=== PATIENT | male | born 1985 | race Asian ===

== ENCOUNTER 2021-06-10 01:42 | Emergency (ER) | payer OTHER ==
[~2021-06-10] VITALS: Ht 182.9 cm; Wt 98.7 kg
--- NOTE | 2021-06-10 02:06 | PHYS DOC ---
Past History Past Surgical History: No Surgical History General Adult EDM: Chief Complaint: SHORTNESS OF BREATH HPI: HPI: 35-year-old male presents with dizziness and shortness of breath. The patient woke up from sleep about an hour ago to go to the restroom and he felt dizzy as soon as he woke up. He describes it as a lightheaded feeling. There is no room spinning. He feels more nauseous if he opens his eyes. He has never had this before. He denies any change in his hearing. Denies any falls or trauma. No fever or chills. Review of Systems: Review of Systems: Constitutional: Denies fever or chills Eyes: Denies change in visual acuity HENT: Denies nasal congestion or sore throat Respiratory: Denies cough or shortness of breath Cardiovascular: Denies chest pain or edema GI: Nausea. Denies abdominal pain, vomiting, bloody stools or diarrhea : Denies dysuria Musculoskeletal: Denies back pain or joint pain Integument: Denies rash Neurologic: Dizziness. Denies headache, focal weakness or sensory changes Endocrine: Denies polyuria or polydipsia Lymphatic: Denies swollen glands Psychiatric: Denies depression or anxiety Current Medications: Current Meds: Current Medications Medications (Trade) Dose Ordered Sig/Vonnie Start Time Stop Time Status Last Admin Dose Admin Sodium Chloride 1,000 ml @ 1,000 mls/hr 1X ONCE 06/10/21 02:30 06/10/21 03:29 Allergies: Allergies: Allergies Coded Allergies Type Severity Reaction Last Updated Verified No Known Drug Allergies 06/10/21 No Physical Exam: PE: Constitutional: Well developed, well nourished, no acute distress, non-toxic appearance. [] HENT: Normocephalic, atraumatic, bilateral external ears normal, oropharynx moist, no oral exudates, nose normal. [] Eyes: PERRLA, EOMI, conjunctiva normal, no discharge. No nystagmus. [] Neck: Normal range of motion, no tenderness, supple, no stridor. [] Cardiovascular: Heart rate regular rhythm, no murmur [] Lungs & Thorax: Bilateral breath sounds clear to auscultation [] Abdomen: Bowel sounds normal, soft, no tenderness, no masses, no pulsatile masses. [] Skin: Warm, dry, no erythema, no rash. [] Back: No tenderness, no CVA tenderness. [] Extremities: No tenderness, no cyanosis, no clubbing, ROM intact, no edema. [] Neurologic: Alert and oriented X 3, normal motor function, normal sensory function, no focal deficits noted. [] Psychologic: Affect normal, judgement normal, mood anxious. [] Current Patient Data: Vital Signs: Vital Signs Date Time Temp Pulse Resp B/P (MAP) Pulse Ox O2 Delivery O2 Flow Rate FiO2 06/10/21 01:43 98.0 76 14 137/86 (103) 98 Room Air EKG: EKG: [] Radiology/Procedures: Radiology/Procedures: [] Impressions: XR CHEST 1V 06/10/2021 1:53 AM INDICATION: Dizziness COMPARISON: None available TECHNIQUE: Portable frontal view of the chest is provided. FINDINGS: The cardiomediastinal silhouette is within normal limits. Lungs are clear. 10 mm nodular opacity identified projecting over the left first rib. There are no significant pleural effusions. There is no pulmonary vascular congestion. No pneumothorax. No suspicious osseous abnormality. IMPRESSION: There is no acute cardiopulmonary process. 10 mm nodular opacity projects over the left first rib. This could be secondary to rib degenerative changes. However, further evaluation with nonemergent CT chest could be of benefit. Electronically signed by: Kathie Eisenberg MD (06/10/2021 2:19 AM) [facility] DICTATED AND SIGNED BY: KATHIE EISENBERG MD DATE: 06/10/21 0215 CC: REYNA BEDOLLA DO; PCP,NO ~MTH0 0 Heart Score: C/O Chest Pain: N/A Risk Factors: Risk Factors: DM, Current or recent (<one month) smoker, HTN, HLP, family history of CAD, obesity. Risk Scores: Score 0 - 3: 2.5% MACE over next 6 weeks - Discharge Home Score 4 - 6: 20.3% MACE over next 6 weeks - Admit for Clinical Observation Score 7 - 10: 72.7% MACE over next 6 weeks - Early Invasive Strategies Course & Med Decision Making: Course & Med Decision Making Pertinent Labs and Imaging studies reviewed. (See chart for details) The patient's labs are unremarkable. His chest x-ray is negative for acute findings. Incidental finding. See official read for more details his EKG is unremarkable. I gave the patient 1 L of normal saline, 4 mg of Zofran, and 25 mg of meclizine. He is feeling better. He is stable for discharge at this time. [] Dragon Disclaimer: Dragon Disclaimer: This electronic medical record was generated, in whole or in part, using a voice recognition dictation system. Departure Departure: Impression: Primary Impression: Dizziness Additional Impression: Shortness of breath Disposition: 01 HOME / SELF CARE / HOMELESS Condition: STABLE Referrals: PCP,NO (PCP) Patient Instructions: Dizziness, [id number], Shortness of Breath, [id number] REYNA BEDOLLA DO Jun 10, 2021 02:06
--- NOTE | 2021-06-10 02:21 | EKG ---
[address] [address] Test Date: 2021-06-10 Test Time: 02:07:40 Pat Name: RONALD MAY Department: Room: Gender: M Information Assistant: HAYLEY : 1985 Requested By: REYNA BEDOLLA Order Number: [id number] Reading MD: Magdaleno Haas Measurements Intervals [place] Rate: 71 P: 19 UT: 166 QRS: 13 QRSD: 90 T: 11 QT: 386 QTc: 424 Interpretive Statements SINUS RHYTHM MILD NON SPECIFIC ST CHANGES RI6.02 No previous ECG available for comparison Electronically Signed On 06-13-2021 9:42:47 STREETSWEEPER OPERATOR by Magdaleno Haas
--- NOTE | 2021-06-10 02:22 | RAD ---
XR CHEST 1V 06/10/2021 1:53 AM INDICATION: Dizziness COMPARISON: None available TECHNIQUE: Portable frontal view of the chest is provided. FINDINGS: The cardiomediastinal silhouette is within normal limits. Lungs are clear. 10 mm nodular opacity iden tified projecting over the left first rib. There are no significant pleural effusions. There is no pulmonary vascular congestion. No pneumothora x. No suspicious osseous abnormality. IMPRESSION: There is no acute cardiopulmonary process. 10 mm nodular opacity projects over the left first rib. This could be secondary to rib degenerative c hanges. However, further evaluation with nonemergent CT chest could be of benefit. Electronically signed by: Jenn Eisenberg MD (06/10/2021 2:19 AM) [facility]
[2021-06-10] MEDS ORDERED: MECLIZINE 12.5 MG TABLET. PO ONE (02:30)
[2021-06-10] MEDS ORDERED: IV NORMAL SALINE 1,000ML 1,000 ML IV ONE (02:30)
[2021-06-10] MEDS ORDERED: ONDANSETRON PF 4 MG/2 ML VIAL. IVP ONE (02:30)
[2021-06-10 02:55] LABS: BASO % 1 % (0-3); EOS # 0.1 x10^3/uL (0.0-0.7); EOS % 1 % (0-3); HEMATOCRIT 45.5 % (39.0-53.0); HEMOGLOBIN 15.4 g/dL (13.0-17.5); LYMPH # 1.8 x10^3/uL (1.0-4.8); LYMPH % 25 % (24-48); MEAN CORPUSCULAR HEMOGLOBIN 30 pg (25-35); MEAN CORPUSCULAR HGB CONC 34 g/dL (31-37); MEAN CORPUSCULAR VOLUME 88 fL (79-100); MONO # 0.5 x10^3/uL (0.0-1.1); MONO % 7 % (0-9); NEUT # 4.8 x10^3uL (1.8-7.7); NEUT % 66 % (31-73); PLATELET COUNT 154 x10^3/uL (140-400); RED BLOOD COUNT 5.18 x10^6/uL (4.30-5.70); RED CELL DISTRIBUTION WIDTH 13.2 % (11.5-14.5); WHITE BLOOD COUNT 7.3 x10^3/uL (4.0-11.0)
[2021-06-10 03:02] LABS: CALCIUM 9.1 mg/dL (8.5-10.1); CREATININE 1.2 mg/dL (0.7-1.3); GFR 68.1; POTASSIUM 3.7 mmol/L (3.5-5.1)
[2021-06-10 03:09] LABS: ALBUMIN 4.1 g/dL (3.4-5.0); ALBUMIN/GLOBULIN RATIO 1.4 (1.0-1.7); TOTAL BILIRUBIN 0.5 mg/dL (0.2-1.0)
[2021-06-10 03:39] VITALS: BP 128/78
== END 2021-06-10 03:42 | disposition home or self-care (01) ==
LOC: ER 01:42
DX: R42 Dizziness and giddiness (principal); R06.02 Shortness of breath
CPT/HCPCS: 36415; 71045; 80053; 84484; 85025; 93005; 96361; 96374; 99285; J2405; J7030